=== PATIENT | male | born 1965 | race Caucasian/White ===

== ENCOUNTER 2017-01-23 17:09 | Inpatient (IN) ==
[2017-01-23 18:30] LABS: MANUAL DIFF NEEDED? NO
[2017-01-23 18:37] LABS: BASO% 0.2 % (0.0-0.8); EOS% 1.1 % (0.0-10.0); HEMATOCRIT 39.7 % (42.0-52.0); IMM GRAN# 0.03 X1000 (0.0-0.04); IMM GRAN% 0.3 % (0.0-0.5); LYMPH# 1.75 X1000 (1.2-3.4); LYMPH% 18.5 % (20.5-51.1); MCH 30.6 PG (27-31); MCHC 35.3 g/dL (33-37); MCV 86.9 FL (81-99); MONO# 0.95 X1000 (0.11-0.59); MPV 11.1 FL (7.4-10.4); NEUT% 69.9 % (42.2-75.2); PLT 171 X1000 (130-400); RBC 4.57 XMIL (4.7-6.1)
[2017-01-23 18:55] LABS: AGAP 17; ALBUMIN 3.8 g/dL (3.5-5.0); ALKALINE PHOSPHATASE 65 U/L (32-122); BUN 22 mg/dL (8-22); CALCIUM 8.9 mg/dL (8.8-10.2); CHLORIDE 94 mmol/L (98-107); COSMO 284; GOT 12 U/L (10-34); GPT 16 U/L (10-44); POTASSIUM 4.3 mmol/L (3.5-5.1); SODIUM 134 mmol/L (136-145); TCO2 23 mmol/L (25-35); TOTAL PROTEIN 7.1 g/dL (6.3-8.3); URIC ACID 5.9 mg/dL (3.4-7.0)
--- NOTE | 2017-01-23 19:40 | PROVIDER DOCUMENTATION ---
HPI-Musculoskeletal Pain/Inj - GENERAL Chief Complaint: Extremity Pain Stated Complaint: LEFT BIG TOE PAIN Time Seen by Provider: 01/23/17 19:32 Source: patient - HX OF PRESENT ILLNESS-MUSKULOSKELTAL Nature of Presenting Problem: 51 y/o M with history of DM (newly diagnosed 1 month ago) HTN, diabetic foot ulcers presents with left great toe pain and swelling x 3 days. Symptoms similar to this in the past with diabetic foot ulcers. He was recently hospitalized at [facility] for hyperglycemic hyperosmolar state and was also treated for cellulitis of left foot (4th and 5th toes) with IV antibiotics and discharged home with PO abx and wound care follow up. He was also started on insulin and educated on diabetic diet. Patient has appt on January [address] Ledezma (wound care). Patient has been performing wound care and took antibiotics but failed to keep foot elevated as instructed. He was checking BG BID but ran out of strips 2 weeks ago. He has not followed up with a PCP regarding the diabetes. He has PCP appt scheduled but not sure when (states his handles these things). Quality of Pain: reports: aching Severity in ED: moderate Onset/Duration: other (onset 1 month ago. Worsening x 3 days) Timing: still present Review of Systems - Adult - REVIEW OF SYSTEMS - ADULT Constitutional: reports: chills. denies: fever Eyes: reports: no symptoms reported Ears, Nose, Mouth & Throat: reports: no symptoms reported Cardiovascular: reports: no symptoms reported. denies: chest pain Respiratory: reports: no symptoms reported. denies: cough Gastrointestinal: reports: no symptoms reported. denies: abdominal pain, nausea , vomiting Genitourinary: reports: no symptoms reported. denies: dysuria, hematuria Musculoskeletal: reports: no symptoms reported. denies: bone pain, back pain Integumentary: reports: no symptoms reported Neurological: reports: no symptoms reported. denies: dizziness/vertigo, headache/migraines Psychiatric: reports: no symptoms reported Endocrine: reports: no symptoms reported Hematologic/Lymphatic: reports: no symptoms reported Allergic/Immunologic: reports: no symptoms reported All Other Systems: Reviewed and Negative Past History - Adult - PAST MEDICAL HISTORY-ADULT Review of Records: reports: Nursing Assessment Review, Medications Reviewed Major Childhood Illnesses: reports: denies history Cardiovascular: reports: HTN Respiratory: reports: denies history Gastrointestinal: reports: denies history Obstetrical/Gynecological: reports: denies history Genitourinary: reports: denies history Musculoskeletal: reports: denies history Neurological: reports: denies history Psychiatric: reports: other (drug abuse) Endocrine/Immune: reports: denies history Other Conditions: reports: denies history - PRIOR SURGERIES/PROCEDURES Surgical/Procedure History: reports: tonsillectomy, back/neck - IMMUNIZATION STATUS Childhood Immunizations: See Nurse Assessment Flu Vaccine: See Nurse Assessment - FAMILY HISTORY Family History: reviewed, not pertinent Physical Exam-Injury Related - Physical Exam-Injury Related Initial Vital Signs Reviewed: Yes General Appearance: appears well, alert, no apparent distress Eyes: PERRL/EOMI, pink conjunctivae Head, Ears, Nose, Mouth & Throat: normocephalic/atraumatic, moist mucous membranes Neck: non-tender, full range of motion, supple Respiratory: chest non-tender, lungs clear, normal breath sounds Cardiovascular: regular rate, rhythm Abdominal Exam: normal bowel sounds, non tender, soft Back Exam: normal inspection Extremity: normal range of motion, erythema, swelling, tenderness, other ( unable to palpate DP pulse due to swelling, however foot is warm and cap refill <2sec) Integumentary: warm/dry Neurologic: grossly normal, no motor/sensory deficits Psych/Mental Status: normal mood/affect, normal thought content, normal thought process, oriented x 3 Progress - PLAN OF CARE/RESULTS Progress/Plan/Lab Results: Laboratory Tests 01/23/17 01/23/17 01/23/17 18:15 18:15 20:13 WBC 9.47 RBC 4.57 L Hgb 14.0 Hct 39.7 L MCV 86.9 MCH 30.6 MCHC 35.3 RDW Std Deviation 13.8 Plt Count 171 MPV 11.1 H Immature Gran % (Auto) 0.3 Neut % (Auto) 69.9 Lymph % (Auto) 18.5 L Door % (Auto) 10.0 H Eos % (Auto) 1.1 Baso % (Auto) 0.2 Immature Gran # (Auto) 0.03 Neut # (Auto) 6.62 H Lymph # (Auto) 1.75 Door # (Auto) 0.95 H Eos # (Auto) 0.10 Baso # (Auto) 0.02 Sodium 134 L Potassium 4.3 Chloride 94 L Carbon Dioxide 23 L Anion Gap 17 BUN 22 Creatinine 1.2 Estimated GFR/1.73 m2 > 60 BUN/Creatinine Ratio 18 Glucose 322 H Calculated Osmolality 284 Uric Acid 5.9 Calcium 8.9 Total Bilirubin 0.50 AST 12 ALT 16 Alkaline Phosphatase 65 Total Protein 7.1 Albumin 3.8 Globulin 3.3 Albumin/Globulin Ratio 1.2 Plasma Lactate 1.1 Orders Category Date Time Status BLOOD CULTURE [BLDCUL] Stat Lab 01/23/17 20:13 Results CBC WITH ELECTRONIC DIFF [HEME] Stat Lab 01/23/17 18:15 Completed COMPREHENSIVE METABOLIC PANEL [CHEM] Stat Lab 01/23/17 18:15 Completed LACTATE, PLASMA [CHEM] Stat Lab 01/23/17 20:13 Completed URIC ACID [CHEM] Stat Lab 01/23/17 18:15 Completed 0.9% Sodium Chloride Inj [Ns] 1,000 ml Med 01/23/17 19:53 Active IV 999 mls/hr Piperacil/Tazobact 3.375 gm/Ns [Zosyn 3.375 gm/Ns] 50 Med 01/23/17 19:54 Discontinued ml IV NOW Vancomycin 1 gm/Ns 250 ml Med 01/23/17 20:49 Active IV NOW Vital Signs Temp Pulse Resp BP Pulse Ox 01/23/17 19:39 83 14 151/80 100 01/23/17 17:31 99.1 F 98 H 18 151/120 99 No Known Allergies Allergy (Verified 01/23/17 20:19) LISINOpril [Prinivil] 10 mg PO DAILY 12/22/16 Insulin Human NPH [Humulin N] 20 unit SUBQ QHS #2 vial 12/26/16 Sennosides/Docusate Sodium [Pericolace] 1 each PO BID #60 tablet 12/26/16 Laboratory 01/23/17 01/23/17 01/23/17 20:13 18:15 18:15 WBC 9.47 RBC 4.57 L Hgb 14.0 Hct 39.7 L MCV 86.9 MCH 30.6 MCHC 35.3 RDW Std Deviation 13.8 Plt Count 171 MPV 11.1 H Immature Gran % (Auto) 0.3 Neut % (Auto) 69.9 Lymph % (Auto) 18.5 L Door % (Auto) 10.0 H Eos % (Auto) 1.1 Baso % (Auto) 0.2 Immature Gran # (Auto) 0.03 Neut # (Auto) 6.62 H Lymph # (Auto) 1.75 Door # (Auto) 0.95 H Eos # (Auto) 0.10 Baso # (Auto) 0.02 Sodium 134 L Potassium 4.3 Chloride 94 L Carbon Dioxide 23 L Anion Gap 17 BUN 22 Creatinine 1.2 Estimated GFR/1.73 m2 > 60 BUN/Creatinine Ratio 18 Glucose 322 H Calculated Osmolality 284 Uric Acid 5.9 Calcium 8.9 Total Bilirubin 0.50 AST 12 ALT 16 Alkaline Phosphatase 65 Total Protein 7.1 Albumin 3.8 Globulin 3.3 Albumin/Globulin Ratio 1.2 Plasma Lactate 1.1 - CONSULTS/PCP/HOSPITALIST Notification #1 *Consult/PCP/Hospitalist*: Dr. Deshpande Time Discussed: 20:59 Consult Disposition: Admit Departure - Departure Time of Disposition Order: 20:59 DIAGNOSIS: Cellulitis of left foot, Diabetic foot ulcer, Uncontrolled diabetes mellitus Disposition: ADMITTED INPATIENT 09 Certified Medical Emergency: Emergent Condition: Stable Attestation - Physician/ DANG Attestation Patient care was provided by Advanced Practice Provider:: Yes Advanced Practice Provider:: [facility] Advanced Practice Provider documentation review:: The Mid-level provider documentation, treatment plan and medical decision making was reviewed by the physician who agrees with all treatment and medical decision making by the P.
[2017-01-23] MEDS ORDERED: NS 1,000 ML IV ONE (19:53)
[2017-01-23] MEDS ORDERED: ZOSYN 3.375 GM/NS 50 ML IV ONE (19:54)
[2017-01-23] MEDS ORDERED: VANCOMYCIN 1 GM/NS 250 ML IV ONE (20:49)
[2017-01-24] MEDS ORDERED: MORPHINE IV PRN (00:06)
[2017-01-24] MEDS ORDERED: ZOFRAN IV PRN (00:06)
[2017-01-24] MEDS: HUMULIN N SUBQ SCH ×2 (01:05→21:21)
--- NOTE | 2017-01-24 01:34 | HISTORY AND PHYSICAL ---
CHIEF COMPLAINT: Left toe pain and irritation. HISTORY OF PRESENT ILLNESS: This is a 51-year-old male with newly diagnosed diabetes and recently admitted for a wound infection. He was actually discharged on insulin and Keflex. Patient did better. Reportedly, he had resolution of his infection because as he had some concern over a blister over his foot which had completely resolved. He came back in for about a four-day history of worsening pain and drainage in his left toe, significantly uncomfortable with weeping and irritation. He has not seen a doctor even though he has been diagnosed with diabetes. It sounds like he also stopped checking his sugar because he ran out of strips. In any case, patient admitted for cellulitis of the left foot failing outpatient therapy. He had been trying to get on medication. Well, he had he had recurrent infections in his foot. PAST SURGICAL HISTORY: 1. He has had back surgery. 2. Obstructive sleep apnea but does not wear a CPAP. 3. Depression. SURGICAL HISTORY: Tonsillectomy, back surgery. SOCIAL HISTORY: He is a 30 year smoker. Occasional marijuana and uses IV opiates, usually Opana. He has not had any drugs since his last admission which was in December. That was about a month ago. FAMILY HISTORY: Father of pancreatic cancer, mother of heart failure. ALLERGIES: No known drug allergies. MEDICATIONS: He is supposed to be taking lisinopril 10, Humulin N 20 units at night, and Senokot docusate. REVIEW OF SYSTEMS: Otherwise negative times a 10 point review of systems. PHYSICAL EXAMINATION: VITAL SIGNS: Blood pressure 148/66, heart rate of 79, respiratory rate of 23, temp was 99.1, 96% on room air. GENERAL: A well-developed male in no acute distress. HEAD: Normocephalic, atraumatic. EYES: Pupils equal, round, reactive to light. Extraocular movements were intact. EAR/NOSE/THROAT: He had moist mucous membranes. NECK: Supple. CARDIOVASCULAR: Regular rate and rhythm. PULMONARY: Bilateral breath sounds. Clear to auscultation. GASTROINTESTINAL: Soft, nontender, nondistended. Bowel sounds are positive. EXTREMITIES: No clubbing or cyanosis. LYMPHATIC: He did have pitting edema in his left foot. SKIN: He had a blistering lesion over his right foot assisted with erythema of the toe and dorsum of his foot. There was no purulent drainage. He has a square, almost jun-shaped lesion, superficial ulceration with a deeper infection over his dorsum of his left foot between his 4th and 5th digits. LABORATORY DATA: No white count. Chemistries look okay. Blood sugar a little bit elevated. PROBLEM LIST: This is a 51-year-old male with diabetes presenting with recurrent cellulitis and diabetic foot ulcer and irritation. 1. Diabetic foot ulcer. We will continue vancomycin and Zosyn. He has got good pulses but I may go ahead and evaluate for blood flow just to make sure it is adequate although I think that is unlikely to be an issue, and we will follow. He may need home IV therapy which may be difficult considering his financial resources. 2. Diabetes. Continue strict control and follow reinforced education. 3. Hypertension. We will continue monitor, use blood pressure medications as tolerated.
[2017-01-24 06:41] LABS: AGAP 14; BUN 16 mg/dL (8-22); CALCIUM 8.7 mg/dL (8.8-10.2); CHLORIDE 97 mmol/L (98-107); COSMO 274; POTASSIUM 4.2 mmol/L (3.5-5.1); SODIUM 134 mmol/L (136-145); TCO2 23 mmol/L (25-35)
[2017-01-24] MEDS: HUMULIN R SUBQ SCH ×4 (07:57→21:25)
[2017-01-24] MEDS: MORPHINE IV PRN ×2 (08:05→15:29)
[2017-01-24] MEDS: PRINIVIL PO SCH (09:01)
[2017-01-24] MEDS: PERICOLACE PO SCH ×2 (09:01→21:21)
[2017-01-24] MEDS: GLUCOPHAGE PO SCH ×2 (09:01→21:21)
--- NOTE | 2017-01-24 12:57 | PROGRESS NOTE ---
DATE: 01/24/2017 SUBJECTIVE: Patient reports mild pain in the left toe. Reports fever at home, but here he is not febrile anymore. OBJECTIVE: Vital Signs: Temperature 98.3 degrees, heart rate 71, respiratory rate 18, blood pressure 138/72, O2 saturation 99% on room air. General examination: This is a 51-year-old, male, lying in bed in no acute distress. HEENT: Head is normocephalic, atraumatic. Anicteric sclerae and pale conjunctivae. Mucous membranes moist. Neck: Supple. No JVD noted. No carotid bruits. No lymphadenopathy. No thyromegaly. Cardiovascular exam: S1, S2 heard. No murmurs, gallops, or rubs. Regular rate and rhythm. Respiratory exam: Clear bilaterally to auscultation. No work of breathing or using accessory muscles. Abdomen: Soft, nontender to palpation. Bowel sounds present. No organomegaly. Extremities: No clubbing, cyanosis, or edema. There is a blistering lesion over the left foot with erythema of the toe and dorsum of the toe. There is no purulent drainage noted. There is also superficial ulceration with a deeper infection over the dorsum of the left foot between the fourth and fifth digits. Neurological exam: Patient alert and oriented x3. Able to move 4 extremities. Cranial nerves 2-12 grossly normal. LABORATORY DATA: Not available today. ASSESSMENT AND PLAN: 1. Diabetic foot ulcer. This is on vancomycin and Zosyn. White cell count is normal from yesterday. We have consulted Dr. Draper from general surgery and Dr. Ledezma from infectious disease to help us in the management of this patient. At this point, we will continue with the same antibiotic treatment. 2. Diabetes mellitus type 2. Hemoglobin A1c is still pending. We will continue with sliding scale insulin. 3. Hypertension. Blood pressure is well controlled here. We will continue with the same management.
[2017-01-24] MEDS ORDERED: VANCOMYCIN IV PER PHARMACY MISC SCH (15:00)
--- NOTE | 2017-01-24 15:24 | Diag Imaging Result Document ---
PROCEDURE NAME: FOOT COMPLETE LEFT - 01/24/2017 LEFT FOOT, 3 VIEWS: FINDINGS: There is degenerative change in the 1st metatarsophalangeal joint and there is some hyperostosis around the base of the 5th metatarsal. There is dorsal spurring over the calcaneus. No evidence of acute fracture or dislocation is present. There is an apparent skin ulcer on the dorsal side of the forefoot. No evidence of lysis or periosteal reaction is present. Compared to 12/22/2016, there has been no apparent change. IMPRESSION: No evidence of acute bony disease.
--- NOTE | 2017-01-24 15:28 | PROGRESS NOTE ---
DATE: 01/24/2017 PRESENT ILLNESS: The patient is admitted. He has a very severe infection of his left foot especially in the left great toe. MEDICATIONS: The patient currently is on no antibiotics. PHYSICAL EXAMINATION: Vital Signs: Temperature is 98.3 degrees, pulse 71, respirations 18, blood pressure 138/72. Generally: This is a somewhat ill-appearing, middle-aged male. He is in no acute distress. Ear, nose, and throat: The patient has very poor oral hygiene with some necrotic teeth. He is missing many teeth. Lungs: Clear to auscultation. Cardiovascular: Regular heart rate. Abdomen: Soft and nontender. Extremities: The patient's left foot is erythematous and swollen. The left great toe is fluctuant. After cleaning the area with alcohol, I took a 21- gauge needle and stuck the fluctuant area, going approximately 0.5-1 cm deep. Purulent foul- smelling fluid came out, in fact some of it, when I squeezed his toe, squirted out. LAB AND X-RAY: The patient's CBC shows a white count of 9470, hemoglobin 14, and platelet count 171,000. Creatinine is 1.0. GFR is greater than 60. Liver function studies are normal. There is no radiographic study. Blood cultures have been drawn. ASSESSMENT AND PLAN: The patient has a severe left foot infection including an abscess involving the left great toe. He may well have an underlying osteomyelitis as well. I have sent the purulent fluid to the lab for culture. I have restarted the patient on vancomycin and Zosyn, and have ordered an x-ray of the left foot. Dr. Montague is going to be seeing the patient today. The patient's main comorbidity is that he is a diabetic and has not in the past controlled his diabetes very well.
[2017-01-24] MEDS: ZOSYN 3.375 GM/NS 50 ML IV SCH ×2 (15:58→21:22)
[2017-01-24] MEDS: VANCOMYCIN 2,000 MG in NS 500 ML IV SCH (16:54)
[2017-01-24] MEDS: NORCO-7.5 PO PRN (19:44)
[2017-01-25] MEDS: NORCO-7.5 PO PRN ×3 (01:45→20:15)
[2017-01-25] MEDS: ZOSYN 3.375 GM/NS 50 ML IV SCH ×4 (03:36→21:51)
[2017-01-25] MEDS: MORPHINE IV PRN (03:36)
[2017-01-25] MEDS: VANCOMYCIN 2,000 MG in NS 500 ML IV SCH ×2 (04:32→18:08)
[2017-01-25] MEDS: HUMULIN R SUBQ SCH ×4 (06:01→21:48)
[2017-01-25 07:12] LABS: HEMOGLOBIN 12.8 g/dL (14.0-18.0); MCH 30.2 PG (27-31); MCHC 34.6 g/dL (33-37); MCV 87.3 FL (81-99); MPV 11.2 FL (7.4-10.4); RBC 4.24 XMIL (4.7-6.1)
[2017-01-25 07:34] LABS: HEMOGLOBIN A1C 8.5 % (4.8-6.0)
[2017-01-25 07:40] LABS: AGAP 13; BUN 15 mg/dL (8-22); CALCIUM 8.3 mg/dL (8.8-10.2); CHLORIDE 100 mmol/L (98-107); COSMO 273; SODIUM 135 mmol/L (136-145); TCO2 22 mmol/L (25-35)
[2017-01-25] MEDS: PERICOLACE PO SCH ×2 (09:13→21:51)
[2017-01-25] MEDS: GLUCOPHAGE PO SCH ×2 (09:14→21:51)
[2017-01-25] MEDS: PRINIVIL PO SCH (09:14)
--- NOTE | 2017-01-25 09:42 | PROGRESS NOTE ---
DATE: 01/25/2017 PRESENT ILLNESS: The patient has a left a diabetic foot infection. There is an abscess on the foot. There may be an underlying osteomyelitis. MEDICATIONS: Currently, the patient is receiving vancomycin and Zosyn. PHYSICAL EXAMINATION: Vital Signs: Temperature is 97.7 degrees. Pulse 63. Respirations 18. Blood pressure 122/72. General: This is an obese, middle-aged male. ENT: Patient is missing many of his teeth and has diffuse caries and some necrotic teeth in place. Lungs: Clear to auscultation. Cardiovascular: Regular heart rate. Abdomen: Soft and nontender. Extremities: The left foot has a large ulcer on top of the foot with an eschar covering it. The left great toe has an abscess which was partially drained yesterday. LAB AND X-RAY STUDIES: X-ray of the foot showed no evidence of osteomyelitis. Blood cultures are sterile. Gram stain of the abscess fluid obtained yesterday showed white cells but no bacteria. The culture is pending. The patient's CBC today shows a white count of 8290, hemoglobin 12.8 and platelet count 159,000, creatinine is 1.0. The GFR is greater than 60. ASSESSMENT AND PLAN: For right now, I am going to keep going with the current antibiotics namely vancomycin and Zosyn and I have ordered a triple phase bone scan of the left foot to check for osteomyelitis. COMORBIDITY: He has diabetes mellitus and unfortunately, he has not been very compliant in the past but he tells me now that he is going to control his sugar well and stay on a diet and lose weight.
--- NOTE | 2017-01-25 14:08 | OPERATIVE NOTE ---
PROCEDURE DATE: 01/25/2017 PREOPERATIVE DIAGNOSIS: Infected left diabetic great toe and foot. POSTOPERATIVE DIAGNOSIS: Infected left diabetic great toe and foot. PROCEDURE PERFORMED: Debridement of skin and subcutaneous tissue, left foot wounds. SURGEON: Pamela Draper MD ANESTHESIA: None. ESTIMATED BLOOD LOSS: 10 mL. DRAINS: None. INDICATIONS: Mr. Magdy Muñiz is a 51-year-old, poorly controlled diabetic who has a left foot diabetic infection. He has an open wound involving the lateral aspect of his left foot and he also has a chronic open wound involving the plantar aspect of his left great toe. He has an infected blister involving the left great toe. There is an eschar involving the wound, lateral left foot. DESCRIPTION OF PROCEDURE: At the bedside, I was able to debride not only his left great toe but also the lateral aspect of his left foot comfortably. I used a 15 blade scalpel to debride away the blisters. The ulcer underlying the blister communicated with the wound on the bottom of the left great toe and I connected those 2 tracks by opening the soft tissue and callus using a 15 blade scalpel. I debrided the eschar off the lateral aspect of his left foot. I clean the wounds with hydrogen peroxide and then redressed the foot. He tolerated the procedure well.
--- NOTE | 2017-01-25 14:38 | PROGRESS NOTE ---
DATE: 01/25/2017 SUBJECTIVE: The patient reports feeling fine. No pain in the left toe. No fever or chills noted OBJECTIVE: Vital Signs: Temperature 97.7 degrees, heart rate 63, respiratory rate 18, blood pressure 122/72, O2 saturation 98% on room air. General Examination: This is a 51-year-old male, lying in bed in no acute distress. HEENT: Head is normocephalic, atraumatic. Anicteric sclerae and pale conjunctivae. Mucous membranes moist. Neck: Supple. No JVD noted. No carotid bruits. No lymphadenopathy. No thyromegaly. Cardiovascular: S1 and S2 heard. No murmurs, gallops, or rubs. Regular rate and rhythm. Respiratory: Clear bilaterally to auscultation. No work of breathing or using accessory muscles. Abdomen: Soft, nontender to palpation. Bowel sounds present. No organomegaly. Extremities: No clubbing, cyanosis, or edema. Blistering lesion over the left foot with erythema of the dorsum of the toe. No purulent drainage noted. Also, superficial ulceration with a deeper infection over the dorsum of the left foot between the 4th and 5th digits. Neurological: Patient alert and oriented x3. Moves 4 extremities. LABORATORY DATA: BMP and CBC unremarkable except mild anemia at 2.8. ASSESSMENT AND PLAN: 1. Diabetic foot ulcer. Patient was admitted to the hospital for this ulcer that has been going on for a few days, according to the patient. General Surgery has been consulted, but there is no note in the chart yet. Dr. Ledezma from Infectious Disease has been consulted and he preferred to continue with vancomycin and Zosyn. Because of suspicion for osteomyelitis, a bone scan has been ordered. We will follow those results. 2. Diabetes mellitus, type 2. Hemoglobin A1c is elevated at 8.5. At this point, we will continue with the same management with the sliding scale insulin. 3. Hypertension. Blood pressure is well controlled. We will continue with the same management.
--- NOTE | 2017-01-25 14:38 | CONSULTATION ---
DATE OF CONSULTATION: 01/25/2017 HISTORY OF PRESENT ILLNESS: Mr. Muñiz is a 51-year-old white male diabetic who is noncompliant and I recently evaluated him while he was hospitalized for an infection of his foot. He presented again to our emergency department with a left diabetic foot infection. He has a chronic ulcer involving the plantar aspect of his left great toe. He also has an open wound involving the lateral aspect of the top of his left foot. We were asked to evaluate him again because of his soft tissue infection, left foot. PAST HISTORY: Back surgery, obstructive sleep apnea, depression, tonsillectomy. SOCIAL HISTORY: He is a smoker. He has used drugs in the past and admits to this. He was last admitted in the hospital in December. FAMILY HISTORY: His father of pancreatic cancer. Mother of heart failure. ALLERGIES: No known drug allergies. MEDICATIONS: He is noncompliant with his medicine but he is supposed to be taking lisinopril, insulin. REVIEW OF SYSTEMS: A 14-point review of systems was performed. He is disabled. He stays at home. His works at [employer]. PHYSICAL EXAM: General: On exam, Mr. Muñiz is awake, pleasant in no acute distress. HEENT exam: No jaundice. No oral lesions. No cervical or supraclavicular lymphadenopathy. Heart: Has a regular rate. Lungs: Clear to auscultation and percussion bilaterally. Abdomen: Soft without tenderness. RECTAL: Exam was not performed. Extremities: He does have palpable peripheral pulses throughout including the dorsalis pedis pulse left foot. He has an open wound involving the top lateral aspect the left foot. He also has a blister with infection involving his left great toe and a chronic open wound involving the plantar aspect of his left great toe. There is swelling of the left great toe and redness involving the toe and foot. His right foot is without evidence of infection. Neurological: He has no focal deficits. IMPRESSION: Left diabetic foot infection in a patient that is noncompliant with his medications and his healthcare. PLAN: At the bedside I will debride the infected blister and wound on the plantar aspect of his left great toe. Also debride the chronic wound involving the top lateral aspect of the left foot. He is receiving IV antibiotics and will need daily wound care.
--- NOTE | 2017-01-25 15:01 | Diag Imaging Result Document ---
PROCEDURE NAME: 3 PHASE BONE SCAN - 01/25/2017 THREE-PHASE BONE SCAN WITH CONED DOWN IMAGES OVER THE FEET. TECHNIQUE AND FINDINGS: 27.8 mCi of technetium MDP administered. Immediate dynamic images show increased uptake within the left foot compared to the right. This persists on the 5, 10, and 15 minute postinjection images. This is most centralized in the midfoot and great toe. Increased activity in the left foot remains on the delayed images. IMPRESSION: Findings suspicious for osteomyelitis of the great toe.
--- NOTE | 2017-01-25 20:23 | VASCULAR LAB ---
DATE: 01/25/2017 STUDY: Bilateral lower extremity segmental pressure and waveform examination. REQUESTING PHYSICIAN: Dr. Huffman. PATIENT PORTAL REPRESENTATIVE: Amadeo. INDICATION: Left-sided ulcers on the first and fifth digits of the foot. PRESSURES: Right brachial 128, left 119. High thigh on the right 163, left 171. Low thigh on the right 178, left 159. Calf pressure on the right 177, left 155. DP on the right 139, left 130. PT on the right 147, left 145. Toe pressure on the right 130, left 127. JARRETT on the right is 1.15, left 1.13. TBI on the right is 1.02, left is 099. IMPRESSION: Waveforms appear normal throughout. ABIs normal as are TBI. SUMMARY: Overall normal examination of bilateral lower extremities.
[2017-01-25] MEDS: HUMULIN N SUBQ SCH (21:51)
[2017-01-26] MEDS: ZOSYN 3.375 GM/NS 50 ML IV SCH ×3 (02:38→14:18)
[2017-01-26] MEDS: NORCO-7.5 PO PRN ×4 (02:38→21:34)
[2017-01-26] MEDS: VANCOMYCIN 2,000 MG in NS 500 ML IV SCH ×2 (03:16→17:24)
[2017-01-26] MEDS: HUMULIN R SUBQ SCH ×4 (06:15→21:35)
[2017-01-26 06:58] LABS: AGAP 10; BUN 13 mg/dL (8-22); CALCIUM 9.3 mg/dL (8.8-10.2); CHLORIDE 99 mmol/L (98-107); COSMO 272; POTASSIUM 4.6 mmol/L (3.5-5.1); SODIUM 135 mmol/L (136-145); TCO2 26 mmol/L (25-35)
[2017-01-26] MEDS: PERICOLACE PO SCH ×2 (08:38→21:35)
[2017-01-26] MEDS: GLUCOPHAGE PO SCH ×2 (08:38→21:35)
[2017-01-26] MEDS: PRINIVIL PO SCH (08:38)
--- NOTE | 2017-01-26 13:15 | PROGRESS NOTE ---
DATE: 01/26/2017 SUBJECTIVE: Feels better, no pain in his foot. OBJECTIVE: No fevers. No tachycardia. Blood pressure 132/70. Oxygen saturation 100% on room air.General: He is alert in no acute distress. Integument: Warm, dry. His foot has clean ulcers on the lateral cephalad aspect and the plantar medial aspect of the left foot. ASSESSMENT: This is a 51-year-old male status post bedside debridement of his chronic diabetic foot wound. These are clean now. The cellulitis of his foot seems to be improving. Will continue to monitor these and provide local wound care. The patient is doing most of this but the nurses are helping. He is on broad-spectrum antibiotics with cultures pending. I will continue to monitor his wounds for need for further debridement but do not need this at this point.
--- NOTE | 2017-01-26 15:54 | PROGRESS NOTE ---
DATE: 01/26/2017 SUBJECTIVE: This patient states that he is feeling much better. He is not complaining about pain. No nausea, no vomiting, no diarrhea, no constipation. No fever. No chills. OBJECTIVE: Vital Signs: Temperature 98.5 degrees, pulse 68, respiratory rate 18, blood pressure 132/70, O2 saturation 100% on room air. HEENT: Head normocephalic. No trauma. PERRLA. Neck: Supple. No JVD. No masses. Central trachea. Chest: Clear to auscultation. No wheezing. No rales. Abdomen: Soft, nontender, nondistended. No hepatosplenomegaly. Cardiovascular: RRR. No murmurs. Extremities: Left foot is wrapped. I do not see any sign of blood. No pain. No edema on the left lower extremity. Neurological: Patient is alert and oriented x3. He moves all 4 extremities. LABORATORY: Sodium 135, potassium 4.6, chloride 99, bicarbonate 26, BUN 13, creatinine 1.1, glucose 126, calcium 9.3. ASSESSMENT AND PLAN: 1. Infected left great toe wound and wound involving the lateral aspect of his left foot, status post debridement of skin and subcutaneous tissue that was done yesterday at bedside. This patient is feeling better. We will continue for now with the antibiotics and pain medications. The Infectious Disease department is on board and for now they are keeping the same antibiotics, vancomycin and Zosyn. We asked for a 3-phase bone scan and the findings are suspicious for osteomyelitis of the great toe. 2. Type 2 diabetes. Hemoglobin A1c is elevated at 8.5. We will continue with the same management. The blood sugar is controlled. 3. Hypertension. Blood pressure is well controlled. Continue with the same management, as well. In summary, this patient has a diabetic foot ulcer at the level of the lateral aspect of the left foot and great toe, status post debridement. Imaging studies showed the possibility of osteomyelitis of the left great toe.
[2017-01-26] MEDS: ZOSYN 3.375 GM in NS 100 ML IV SCH (21:34)
[2017-01-26] MEDS: HUMULIN N SUBQ SCH (21:35)
[2017-01-27] MEDS: ZOSYN 3.375 GM in NS 100 ML IV SCH ×4 (03:31→21:35)
[2017-01-27] MEDS: VANCOMYCIN 2,000 MG in NS 500 ML IV SCH ×2 (04:45→16:12)
[2017-01-27] MEDS: NORCO-7.5 PO PRN ×4 (04:45→22:53)
[2017-01-27 06:30] LABS: MANUAL DIFF NEEDED? NO
[2017-01-27 06:41] LABS: BASO% 0.7 % (0.0-0.8); EOS# 0.34 X1000 (0.0-0.7); EOS% 3.3 % (0.0-10.0); HEMATOCRIT 38.6 % (42.0-52.0); HEMOGLOBIN 13.5 g/dL (14.0-18.0); IMM GRAN# 0.03 X1000 (0.0-0.04); IMM GRAN% 0.3 % (0.0-0.5); LYMPH% 38.2 % (20.5-51.1); MCH 30.1 PG (27-31); MCV 86.2 FL (81-99); MONO# 0.97 X1000 (0.11-0.59); MONO% 9.5 % (1.7-9.3); MPV 11.2 FL (7.4-10.4); PLT 227 X1000 (130-400); RBC 4.48 XMIL (4.7-6.1)
[2017-01-27] MEDS: HUMULIN R SUBQ SCH ×4 (06:43→21:20)
[2017-01-27 06:49] LABS: AGAP 12; ALBUMIN 4.2 g/dL (3.5-5.0); ALKALINE PHOSPHATASE 64 U/L (32-122); BUN 14 mg/dL (8-22); CALCIUM 9.3 mg/dL (8.8-10.2); CHLORIDE 99 mmol/L (98-107); COSMO 272; GOT 15 U/L (10-34); GPT 17 U/L (10-44); POTASSIUM 4.4 mmol/L (3.5-5.1); SODIUM 135 mmol/L (136-145); TCO2 24 mmol/L (25-35); TOTAL BILIRUBIN 0.43 mg/dL (0.20-1.00); TOTAL PROTEIN 7.5 g/dL (6.3-8.3)
[2017-01-27] MEDS: PERICOLACE PO SCH ×2 (10:27→21:36)
[2017-01-27] MEDS: PRINIVIL PO SCH (10:27)
[2017-01-27] MEDS: GLUCOPHAGE PO SCH ×2 (10:28→21:36)
--- NOTE | 2017-01-27 11:46 | PROGRESS NOTE ---
DATE: 01/27/2017 SUBJECTIVE: Feels well. No pain in his foot. OBJECTIVE: General: No fevers. No tachycardia. Extremities: Dressing is clean, dry, intact. There is no cellulitis in his toes or extending up the foot. LABS: White count normal at 10. Blood glucose 126. Creatinine is 1.2. ASSESSMENT: This is a 51-year-old male status post debridement of diabetic foot wounds. Dressing is clean and changes are going well. He is on antibiotics. Will continue to follow but clinically he is much improved. No plans for further surgical intervention.
--- NOTE | 2017-01-27 16:01 | PROGRESS NOTE ---
DATE: 01/27/2017 SUBJECTIVE: This patient states that he is feeling better. He is not complaining about pain. No nausea, no vomiting, no diarrhea, no constipation, no fever, no chills. OBJECTIVE: Vital Signs: Temperature 98.9 degrees, pulse 54, respiratory rate 20, blood pressure 127/70, O2 saturation 100% on room air. HEENT: Head normocephalic. No trauma. PERRLA. Neck: Supple. No JVD. No masses. Central trachea. Chest: Clear to auscultation. No wheezing. No rales. Cardiovascular: Regular rhythm and rate. No murmurs. No gallops. No rubs. Abdomen: Soft, nontender, nondistended. No hepatosplenomegaly. Extremities: No edema. The left foot is wrapped. I do not see any signs of bleed. No pain. No edema on the left lower extremity. Neurological: The patient is alert and oriented x3. He moves all 4 extremities. LABORATORY: WBC 10.2, hemoglobin 13.5, hematocrit 38.6, platelets 227,000. Sodium 135, potassium 4.4, chloride 99, bicarbonate 24, BUN 14, creatinine 1.2, glucose 126, calcium 9.3. ASSESSMENT AND PLAN: 1. Infected left great toe wound and wound involving the lateral aspect of his left foot, status post debridement of skin and subcutaneous tissue that was done yesterday at bedside. This patient is feeling better. We will continue with the same antibiotics for now. Infectious Disease Department is following this patient. We asked for a 3-phase bone scan that showed suspicious osteomyelitis of the great toe. 2. Type 2 diabetes. Hemoglobin A1c is elevated at 8.5, the blood sugar inhouse is stable. I will continue with the same treatment. 3. Hypertension the blood pressure is well controlled. Continue with the same management as well.
[2017-01-27] MEDS: HUMULIN N SUBQ SCH (21:36)
[2017-01-28] MEDS: ZOSYN 3.375 GM in NS 100 ML IV SCH ×2 (02:48→09:15)
[2017-01-28] MEDS: VANCOMYCIN 2,000 MG in NS 500 ML IV SCH (03:32)
[2017-01-28] MEDS: NORCO-7.5 PO PRN ×3 (05:12→19:00)
[2017-01-28] MEDS: HUMULIN R SUBQ SCH ×4 (06:03→21:11)
[2017-01-28 07:03] LABS: MANUAL DIFF NEEDED? NO
[2017-01-28 07:23] LABS: BASO% 0.3 % (0.0-0.8); EOS# 0.28 X1000 (0.0-0.7); EOS% 3.1 % (0.0-10.0); HEMATOCRIT 38.8 % (42.0-52.0); HEMOGLOBIN 13.6 g/dL (14.0-18.0); LYMPH# 3.05 X1000 (1.2-3.4); LYMPH% 33.8 % (20.5-51.1); MCH 30.3 PG (27-31); MCHC 35.1 g/dL (33-37); MCV 86.4 FL (81-99); MONO# 0.76 X1000 (0.11-0.59); MONO% 8.4 % (1.7-9.3); MPV 10.9 FL (7.4-10.4); NEUT% 54.4 % (42.2-75.2); PLT 235 X1000 (130-400); RBC 4.49 XMIL (4.7-6.1)
[2017-01-28 07:53] LABS: AGAP 13; BUN 15 mg/dL (8-22); CALCIUM 9.5 mg/dL (8.8-10.2); CHLORIDE 102 mmol/L (98-107); COSMO 281; POTASSIUM 4.1 mmol/L (3.5-5.1); SODIUM 140 mmol/L (136-145); TCO2 25 mmol/L (25-35)
[2017-01-28] MEDS: PRINIVIL PO SCH (09:15)
[2017-01-28] MEDS: PERICOLACE PO SCH ×2 (09:15→21:10)
[2017-01-28] MEDS: GLUCOPHAGE PO SCH ×2 (09:15→21:10)
[2017-01-28] MEDS ORDERED: ZOSYN 3.375 GM/NS 50 ML IV SCH (15:00)
[2017-01-28] MEDS: KEFZOL 2 GM/D5W 50 ML IV SCH (16:58)
[2017-01-28 17:37] LABS: INR 1.08
--- NOTE | 2017-01-28 18:22 | PROGRESS NOTE ---
DATE: 01/28/2017 SUBJECTIVE: This patient states that he is feeling better. He is not complaining about pain. No nausea, no vomiting, no diarrhea, no constipation. No fever. No chills. OBJECTIVE: Vital Signs: Temperature 97.7 degrees, pulse 61, respiratory rate 16, blood pressure 126/65, O2 saturation 99 on room air. HEENT: Head normocephalic. No trauma. Pupils equal, round, and reactive to light and accommodation. Neck: Supple. No jugular venous distention. No masses. Central trachea. Chest: Clear to auscultation. No wheezing. No rales. Abdomen: Soft, nontender, nondistended. No hepatosplenomegaly. Extremities: No edema. The left foot is wrapped. I do not see any sign of bleed. No pain. No edema on the other extremity. Neurological Examination: The patient is alert and oriented x3. No focal neurological deficits. LABORATORY: WBC 9, hemoglobin 13.6, hematocrit 38.8, platelets 235,000. Sodium 140, potassium 4.1, chloride 102, bicarbonate 25, BUN 15, creatinine 1.1. Glucose 116, calcium 9.5. ASSESSMENT AND PLAN: 1. Infected left great toe wound and wound involving the lateral aspect of the left foot. Basically this is a diabetic foot that is status post debridement of skin and subcutaneous tissues that was done 2 days ago at bedside. This patient is feeling better. We will continue with the same antibiotics for now. Infectious Disease Department and Surgery are following this patient. We had a 3-phase bone scan that showed suspicious for osteomyelitis at the great toe. 2. Type 2 diabetes. The hemoglobin A1c is elevated at 8.5. Blood sugar is stable. I will continue with the same management. 3. Hypertension. The blood pressure is well controlled. Continue with the same management.
--- NOTE | 2017-01-28 19:03 | PROGRESS NOTE ---
DATE: 01/28/2017 PRESENT ILLNESS: The patient has an oxacillin sensitive Staph aureus, left foot osteomyelitis. MEDICATIONS: Currently is receiving vancomycin and Zosyn. PHYSICAL EXAMINATION: Vital Signs: Temperature is 97.7 degrees, pulse 61, respirations 16, blood pressure 126/65. General: This is an obese, but otherwise healthy-appearing middle-aged male who is in no acute distress. Lungs: Clear to auscultation. Cardiovascular: Regular heart rate. Abdomen: Soft and nontender. Extremities: Removed the dressing from the patient's left foot. There was much less swelling and erythema than when I had seen the foot before. The open wounds look like they were beginning to granulate. LAB AND X-RAY: The patient's bone scan shows that there is probable osteomyelitis in the left great toe. The patient's CBC today shows a white count of 9030, hemoglobin 13.6, and platelet count 235,000. Creatinine is 1.1. The GFR is greater than 60. The cultures from the patient's left great toe came back. It grew oxacillin-sensitive Staph aureus. Blood cultures were negative. ASSESSMENT AND PLAN: The patient has an oxacillin sensitive Staph aureus left foot osteomyelitis. My plan is to treat him with Ancef 2 g IV every 8 hours for a total of 6 weeks. I have requested that a PICC be placed. I put a consult in for [facility] to see the patient and provide his home IV antibiotic services. COMORBIDITIES: The patient's comorbidities includes diabetes mellitus, and unfortunately the patient in the past has not kept his diabetes under good control, but hopefully this will change this time. My plan is the patient to see him at 3 weeks and then again at 6 weeks. After 6 week visit; hopefully, we will be able to stop his antibiotics and take out his PICC. I discussed with the patient the surgical options that Dr. Montague had discussed with him and the patient said for now he would like to try antibiotics and not have amputation of his toes.
--- NOTE | 2017-01-28 19:34 | PROGRESS NOTE ---
DATE: 01/28/2017 SUBJECTIVE: Mr. Magdy Muñiz has been hospitalized with a diabetic foot infection. I debrided his left great toe locally at the bedside and he is undergoing daily dressing changes and IV antibiotics and clinically he is improving. His white blood cell counts normal. His hematocrit is 39%. He is afebrile. He is eating well. He is on IV Zosyn and vancomycin for his diabetic foot infection.
[2017-01-28] MEDS: HUMULIN N SUBQ SCH (21:12)
[2017-01-29] MEDS: NORCO-7.5 PO PRN ×3 (01:21→12:59)
[2017-01-29] MEDS: KEFZOL 2 GM/D5W 50 ML IV SCH ×2 (01:22→09:19)
[2017-01-29] MEDS: HUMULIN R SUBQ SCH ×2 (06:47→10:36)
[2017-01-29 07:07] LABS: AGAP 13; BUN 19 mg/dL (8-22); CALCIUM 9.2 mg/dL (8.8-10.2); CHLORIDE 101 mmol/L (98-107); COSMO 278; POTASSIUM 3.9 mmol/L (3.5-5.1); SODIUM 137 mmol/L (136-145); TCO2 23 mmol/L (25-35)
[2017-01-29 07:28] VITALS: BP 151/87
[2017-01-29] MEDS ORDERED: NS 250 ML ONE (08:06)
--- NOTE | 2017-01-29 09:09 | PROGRESS NOTE ---
DATE: 01/29/2017 HISTORY OF PRESENT ILLNESS: Mr. Magdy Muñiz continues to be treated for diabetic foot infection, mostly involving his left great toe. I have debrided his left great toe and an open wound on the top of his lateral left foot at the bedside. There is no un drained purulence. He continues on IV antibiotics and he continues to have a swollen red left great toe. I cleaned the wound today and re-dressed it. OBJECTIVE: His heart rate 59, blood pressure 151/87, O2 saturation is 100%. He is afebrile. He is on vancomycin and Zosyn. His white blood cell count is normal. Hematocrit is 39%. His electrolytes are within normal limits. BUN is 19, creatinine 1.1. His glucose is 131; it has been fairly well controlled during his hospitalization. A bone scan performed on 01/25/2017 suggests findings suspicious for osteomyelitis of the left great toe. A plain film on 01/24/2017 showed no evidence of acute bony disease involving the left foot. PLAN: Dr. Ledezma, our infectious disease physician, has seen the patient. He is trying to arrange long-term home and IV antibiotics for further treatment of his left great toe infection and possible osteomyelitis. There does not appear to be any joint instability on exam of this left great toe at this time.
[2017-01-29] MEDS: GLUCOPHAGE PO SCH (09:18)
[2017-01-29] MEDS: PRINIVIL PO SCH (09:18)
[2017-01-29] MEDS: PERICOLACE PO SCH (09:18)
[2017-01-29] MEDS ORDERED: PNEUMOVAX 23 IM ONE (14:45)
--- NOTE | 2017-01-29 18:42 | DISCHARGE SUMMARY ---
ADMISSION DATE: 01/24/2017 DISCHARGE DATE: 01/29/2017 CONSULTATIONS: Jakob Draper M.D., General Surgery. PERTINENT PROCEDURES: 1. Debridement of skin and subcutaneous tissue of left foot wound performed by Dr. Draper. 2. Bone scan. Findings are suspicious for osteomyelitis of the great toe left. DISCHARGE DIAGNOSES: 1. Infected left great toe wound and wound involving the lateral aspect of the left foot status post debridement of skin and subcutaneous tissues which was done at the bedside by Dr. Draper. Dr. Ryland Ledezma is on board. Patient will go home with [facility] for IV antibiotics. 2. Type 2 diabetes. Hemoglobin A1c was 8.5. Continue with home medications. 3. Hypertension. Continue with home blood pressure medicines. HOSPITAL COURSE: Briefly, Mr. Muñiz is a 51-year-old male newly diagnosed with diabetes and recently admitted for a wound infection. He was discharged on insulin and Keflex. The patient did better. Reportedly he had resolution of his infection but he did have some concern over a blister on his foot which had completely resolved. He came back in with a 4-day history of worsening pain and drainage over his left great toe. It was weeping and irritated. The patient has not been to a doctor yet even though he was diagnosed with diabetes. He ran out of strips so he quit checking his sugars. The patient was admitted for cellulitis of the left foot failing outpatient therapy. He was started on IV vancomycin as well as Zosyn. Reinforced diabetic education. The patient did undergo some arterial studies and that was overall a normal examination of the bilateral lower extremities. He did have a bone scan that was suspicious for osteomyelitis of the great toe. Dr. Draper was consulted for surgery. Patient did undergo a debridement of skin and subcutaneous tissue on the left foot wound. Dr. Ryland Ledezma was consulted. The patient did have oxacillin-sensitive Staphylococcus aureus to the left foot osteomyelitis. His plan is to see the patient in 3 weeks and then again in 6. At the 6 week visit he has to be able to stop his antibiotics and take out his PICC line. The patient will be going home on vancomycin and Zosyn. [facility] has been consulted. VITAL SIGNS AT TIME OF DISCHARGE: Temperature 98.7 degrees, heart rate 59, respirations 18, blood pressure 151/87, O2 is 100% on room air. DISCHARGE DIET: Diabetic. DISCHARGE MEDICATIONS: 1. Prinivil 10 mg p.o. daily. 2. Humulin N 20 units subcutaneously at bedtime. 3. Nathaly-Colace 1 each p.o. b.i.d. 4. Huslia 7.5/325, 1 each p.o. q.6 hours p.r.n. 5. Glucophage 850 mg p.o. b.i.d. 6. Vancomycin and Zosyn as per Dr. Ledezma and [facility]. FOLLOWUP: 1. Patient is being discharged home with [facility] for IV antibiotics. 2. He will follow up with Dr. Ryland Ledezma in 3 weeks as well as again in 6 weeks when they have to stop the antibiotics and take out his PICC line. 3. He will need to follow up with Dr. Draper in 1 week. The nurse will call the patient for a follow-up appointment and time. 4. Patient will also need to find a primary care physician to follow up with especially regarding his diabetes. He has been given diabetes care as well as re-educated on his diabetes and diabetic diet. 5. Patient can return to the ED for any worsening of symptoms. DISCHARGE TIME: 30 minutes. Dictated by BRADY Fairbanks for Gavino Sebastian MD
== END 2017-01-29 15:40 | disposition home health service (06) | DRG 982 ==
LOC: ED 17:09 → EDIPHOLD 23:59 → 4N 01-24 11:15
PROVIDERS: ATTEND Internal Medicine
PROC: 0H9NXZZ Drainage of Left Foot Skin, External Approach (ICD-10-PCS; principal; 2017-01-24)
PROC: 0JDR3ZZ Extraction of Left Foot Subcutaneous Tissue and Fascia, Percutaneous Approach (ICD-10-PCS; 2017-01-25)
PROC: 02HV33Z Insertion of Infusion Device into Superior Vena Cava, Percutaneous Approach (ICD-10-PCS; 2017-01-29)
DX: E11.621 Type 2 diabetes mellitus with foot ulcer (principal); L03.116 Cellulitis of left lower limb; M86.9 Osteomyelitis, unspecified; L02.612 Cutaneous abscess of left foot; E11.69 Type 2 diabetes mellitus with other specified complication; L97.529 Non-pressure chronic ulcer of other part of left foot with unspecified severity; I10 Essential (primary) hypertension; G47.33 Obstructive sleep apnea (adult) (pediatric); F32.9 Major depressive disorder, single episode, unspecified; F17.210 Nicotine dependence, cigarettes, uncomplicated; Z23 Encounter for immunization; Z79.899 Other long term (current) drug therapy; Z79.4 Long term (current) use of insulin; Z80.8 Family history of malignant neoplasm of other organs or systems
CPT/HCPCS: 36415; 36569; 78315; 80048; 80053; 80202; 82948; 83036; 83605; 84550; 85025; 85027; 85610; 87040; 87070; 87077; 87186; 90732; 93923; 96365; 96367; 96375; A9503; J0690; J2270; J2543; J3370; J7030; J7040; J7050

== ENCOUNTER 2019-02-04 15:19 | Inpatient (IN) ==
[2019-02-04 16:51] LABS: BASO# 0.05 X1000 (0.0-0.2); BASO% 0.6 % (0.0-0.8); EOS# 0.21 X1000 (0.0-0.7); EOS% 2.6 % (0.0-10.0); HEMATOCRIT 37.4 % (42.0-52.0); HEMOGLOBIN 13.1 g/dL (14.0-18.0); IMM GRAN# 0.03 X1000 (0.0-0.04); IMM GRAN% 0.4 % (0.0-0.5); LYMPH% 28.4 % (20.5-51.1); MCH 29.6 PG (27-31); MCV 84.6 FL (81-99); MONO# 0.73 X1000 (0.11-0.59); NEUT# 4.79 X1000 (1.4-6.5); PLT 194 X1000 (130-400); RBC 4.42 XMIL (4.7-6.1); RDW 13.2 % (11.5-14.5); WBC 8.11 X1000 (4.8-10.8)
[2019-02-04 17:04] LABS: ACETONE SERUM NEGATIVE (NEGATIVE)
[2019-02-04 17:14] LABS: AGAP 11; ALB/GLOB RATIO 1.3; ALKALINE PHOSPHATASE 94 U/L (32-122); BUN 38 mg/dL (8-22); CALCIUM 9.2 mg/dL (8.8-10.2); CHLORIDE 99 mmol/L (98-107); COSMO 290; CREATININE 1.3 mg/dL (0.7-1.2); ESTIMATED GFR 58; GLUCOSE 336 mg/dL (70-104); GOT 20 U/L (10-34); GPT 22 U/L (10-44); POTASSIUM 4.6 mmol/L (3.5-5.1); SODIUM 134 mmol/L (136-145); TCO2 24 mmol/L (25-35); TOTAL BILIRUBIN 0.37 mg/dL (0.20-1.00); TOTAL PROTEIN 7.2 g/dL (6.3-8.3)
--- NOTE | 2019-02-04 17:44 | Diag Imaging Result Doc PS360 ---
FOOT COMPLETE RIGHT - 02/04/2019 INDICATION: foot ulcer TECHNIQUE: Three views COMPARISON: None FINDINGS: There is soft tissue irregularity at the medial distal great toe suggesting ulceration. No soft tissue gas or foreign body. There are bulky degenerative heel spurs. There are degenerative changes throughout the mid tarsal joints and at the metatarsophalangeal joints. No fractures or bony erosions. IMPRESSION: 1. Soft tissue ulceration of the great toe but no evidence of osteomyelitis. 2. Degenerative changes throughout the foot. Electronically signed by Tobin Morgan 02/04/2019 5:42 PM
--- NOTE | 2019-02-04 17:47 | Diag Imaging Result Doc PS360 ---
FOOT COMPLETE LEFT - 02/04/2019 INDICATION: foot ulcer TECHNIQUE: Three views COMPARISON: 01/24/2017 FINDINGS: There are bulky degenerative heel spurs. Stable degenerative changes throughout the mid tarsal joints and the metatarsophalangeal joint. No fractures or bony erosions. There is possible soft tissue gas at the lateral surface of the fifth toe. Correlate clinically. IMPRESSION: Possible soft tissue gas at the lateral surface of the fifth toe. No fractures or osteomyelitis. Electronically signed by Tobin Morgan 02/04/2019 5:45 PM
[2019-02-04 18:13] LABS: URINE SOURCE CLEAN CATCH
[2019-02-04 18:20] LABS: BILIRUBIN URINE NEGATIVE (NEGATIVE); BLOOD URINE NEGATIVE (NEGATIVE); COLOR YELLOW; GLUCOSE URINE >1000 mg/dL (NEGATIVE); KETONE URINE NEGATIVE (NEGATIVE); LEUKOCYTES URINE NEGATIVE (NEGATIVE); NITRITE URINE NEGATIVE (NEGATIVE); PROTEIN URINE TRACE mg/dL (NEGATIVE); SP GRAVITY URINE 1.014; TURBIDITY URINE CLEAR (CLEAR); UR EPITHELIAL CELLS <10 /HPF (<10); URINE BACTERIA NEGATIVE /HPF; URINE RBC <10 /HPF (<10); URINE WBC <10 /HPF (<10); UROBILINOGEN URINE NORMAL (NORMAL)
[2019-02-04] MEDS ORDERED: VANCOMYCIN 1 GM/NS 1 GM/250 ML IVPB IV ONE (18:36)
--- NOTE | 2019-02-04 18:40 | PROVIDER DOCUMENTATION ---
This chart was entered by Candida Draper Scribe, acting as scribe for Shaheen Lee CRNP. HPI-Rash/Wound/ReCheck - General Chief Complaint: Extremity Pain Stated Complaint: DIABETIC,FOOT COMPLAINT Time Seen by Provider: 02/04/19 16:06 Source: patient, family (daughter) Allergies/Adverse Reactions: Allergies Allergy/AdvReac Type Severity Reaction Status Date / Time No Known Allergies Allergy Verified 02/04/19 16:37 Home Medications: Home Medication List Medication Instructions Recorded Confirmed Last Taken Type NK [No Home Medications] 02/04/19 02/04/19 Unknown History - History of Present Illness-Dermatology Nature of Presenting Problem: 54 yowm presents to the ed with c/o diabetic wounds to medial bilateral great toes and laceration non healing to left lateral bottom of foot. pt sts he is a NIDM but has ran out of medication and does not have a pcp. 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 with washing, betadine and honey daily but wounds will not improve Location: reports: feet Quality: reports: painful Severity: reports: moderate Onset/Duration: reports: gradual Timing: reports: still present, constant Context/Associated Symptoms: reports: laceration (lateral bottom left foot), tender area, other (ulcerations to bilateral great toes) Identifiable cause?: Yes (diabetic wound) Locality of Occurance: Home Similar Symptoms Previously?: Yes Recently seen or treated by another doctor?: No Review of Systems - Adult - REVIEW OF SYSTEMS - ADULT Constitutional: denies: chills, fever Eyes: reports: no symptoms reported Ears, Nose, Mouth & Throat: reports: no symptoms reported Cardiovascular: denies: chest pain, palpitations Respiratory: denies: cough, shortness of breath, wheezing Gastrointestinal: denies: abdominal pain, diarrhea, nausea, vomiting Genitourinary: reports: no symptoms reported Musculoskeletal: reports: see HPI, other (bilateral great toes). denies: back pain, neck pain Integumentary: reports: see HPI, skin sores/ulcer Neurological: denies: dizziness/vertigo, headache/migraines Psychiatric: reports: no symptoms reported Endocrine: reports: no symptoms reported Hematologic/Lymphatic: reports: no symptoms reported Allergic/Immunologic: reports: no symptoms reported All Other Systems: Reviewed and Negative Past History - Adult - PAST MEDICAL HISTORY-ADULT Review of Records: reports: Old Records Reviewed, Nursing Assessment Review, Medications Reviewed, Social history reviewed & non-contributory. Major Childhood Illnesses: reports: denies history Cardiovascular: reports: HTN Respiratory: reports: denies history Gastrointestinal: reports: denies history Obstetrical/Gynecological: reports: denies history Genitourinary: reports: denies history Musculoskeletal: reports: denies history Hand Dominance: Right Handed Neurological: reports: denies history Psychiatric: reports: other (drug abuse) Endocrine/Immune: reports: denies history Other Conditions: reports: denies history - PRIOR SURGERIES/PROCEDURES Surgical/Procedure History: reports: tonsillectomy, back/neck - IMMUNIZATION STATUS Childhood Immunizations: See Nurse Assessment Flu Vaccine: See Nurse Assessment - FAMILY HISTORY Family History: reviewed, not pertinent - SOCIAL HISTORY Smoking: cigarettes, greater than 1 pack/day Provider spent 3-5 mins advising pt. on dangers of tobacco.: Discussed manners to quit use, and f/u contacts for add'l counseling. Substance Use: alcohol Alcohol Use Frequency: 2-3 times a month Number of drinks per typical drinking period:: 3-4 drinks Living Situation: family Physical Exam-General - PHYSICAL EXAM-ADULT Initial Vital Signs Reviewed: Yes - CONSTITUTIONAL General Appearance: appears well, alert, no apparent distress - EYES Eyes: PERRL/EOMI, pink conjunctivae - HEAD, EARS, NOSE, MOUTH & THROAT HENMT: moist mucous membranes, dental decay - NECK Neck: non-tender, full range of motion, supple, normal inspection - RESPIRATORY Respiratory: chest non-tender, lungs clear, normal breath sounds - CARDIOVASCULAR Cardiovascular: normal peripheral pulses, regular rate, rhythm - GASTROINTESTINAL (ABDOMEN) Abdominal Exam: normal bowel sounds, non tender, soft - LYMPHATIC Lymphatic: no adenopathy - MUSCULOSKELETAL Back Exam: normal inspection, no CVA tenderness, no vertebral tenderness Extremity: normal range of motion, no calf tenderness, normal capillary refill, pelvis stable, tenderness (bilateral great toes with diabetic ulcerations and non healing laceration to bottom of left lateral foot) - SKIN Integumentary: normal color, normal turgor, warm/dry, laceration(s) (bottom lateral left foot), tenderness (left grat toe), other (diabetic ulcerations to medial bilateral great toes) - NEUROLOGIC Neurologic: grossly normal, no motor/sensory deficits - PSYCHIATRIC Psych/Mental Status: normal mood/affect, normal thought content, normal thought process, oriented x 3 Progress - PLAN OF CARE/RESULTS Progress/Plan/Lab Results: Vital Signs - 8 hr 02/04/19 15:23 Temperature 98.4 F Pulse Rate 93 H Respiratory Rate 17 Blood Pressure 175/70 O2 Sat by Pulse Oximetry 98 Laboratory Results - last 24 hr 02/04/19 02/04/19 02/04/19 16:35 16:35 17:04 WBC 8.11 RBC 4.42 L Hgb 13.1 L Hct 37.4 L MCV 84.6 MCH 29.6 MCHC 35.0 RDW Std Deviation 13.2 Plt Count 194 MPV 11.0 H Immature Gran % (Auto) 0.4 Neut % (Auto) 59.0 Lymph % (Auto) 28.4 [place] % (Auto) 9.0 Eos % (Auto) 2.6 Baso % (Auto) 0.6 Immature Gran # (Auto) 0.03 Neut # (Auto) 4.79 Lymph # (Auto) 2.30 [place] # (Auto) 0.73 H Eos # (Auto) 0.21 Baso # (Auto) 0.05 Sodium 134 L Potassium 4.6 Chloride 99 Carbon Dioxide 24 L Anion Gap 11 BUN 38 H Creatinine 1.3 H Estimated GFR/1.73 m2 58 BUN/Creatinine Ratio 29 Glucose 336 H Calculated Osmolality 290 Calcium 9.2 Total Bilirubin 0.37 AST 20 ALT 22 Alkaline Phosphatase 94 Total Protein 7.2 Albumin 4.0 Globulin 3.2 Albumin/Globulin Ratio 1.3 Urine Source CLEAN CATCH Urine Color YELLOW Urine Turbidity CLEAR Urine pH 5.0 Ur Specific [place] 1.014 Urine Protein TRACE A Ur Glucose (Stick) >1000 A Ur Ketones (Stick) NEGATIVE Urine Blood NEGATIVE Urine Nitrite NEGATIVE Urine Bilirubin NEGATIVE Urobilinogen Dipstick NORMAL Urine Leukocytes NEGATIVE Urine WBC (Auto) <10 Urine RBC (Auto) <10 U Epithel Cells (Auto) <10 Urine Bacteria (Auto) NEGATIVE Acetone Level NEGATIVE Orders Category Date Time Status FOOT COMPLETE LEFT [RAD] Stat Exams 02/04/19 16:35 Completed FOOT COMPLETE RIGHT [RAD] Stat Exams 02/04/19 16:35 Completed CBC WITH DIFF [HEME] Stat Lab 02/04/19 16:35 Completed COMPREHENSIVE METABOLIC PANEL [CHEM] Stat Lab 02/04/19 16:35 Completed Ketone [ACETONE SERUM] [CHEM] Stat Lab 02/04/19 16:35 Completed URINALYSIS W/POSS RFLX CULT [URINALYSIS] Stat Lab 02/04/19 17:04 Completed Vancomycin 1 gm/Ns Med 02/04/19 18:36 Active 1 gm in 250 ml IV NOW Result Diagrams: 02/04/19 16:35 02/04/19 16:35 - CONSULTS/PCP/HOSPITALIST Notification #1 *Consult/PCP/Hospitalist*: Dr. San Time Discussed: 18:38 Reason/Comments: advised pt will be admitted by Dr. Esquivel Consult Disposition: Admit Departure - Departure Date of Disposition Decision: 02/04/19 Time of Disposition Decision: 18:39 DIAGNOSIS: Tobacco use disorder Diabetic foot ulcer Qualifiers: Diabetic foot ulcer location: toe Diabetes mellitus type: type 2 Laterality: unspecified laterality Non-pressure ulcer stage: unspecified non-pressure ulcer stage Qualified Code(s): E11.621 - Type 2 diabetes mellitus with foot ulcer; L97.509 - Non-pressure chronic ulcer of other part of unspecified foot with unspecified severity Uncontrolled diabetes mellitus Qualifiers: Diabetes mellitus type: type 2 Glycemic state: with hyperglycemia Qualified C ode(s): E11.65 - Type 2 diabetes mellitus with hyperglycemia Disposition: ADMITTED INPATIENT 09 Certified Medical Emergency: Emergent Condition: Stable Referrals and Follow-Ups: None,PCP [Primary Care Provider] - - Critical Care Note This patient required my direct & personal management of CC.: No Attestation - Physician/ DANG Attestation Patient care was provided by Advanced Practice Provider:: Yes Advanced Practice Provider documentation review:: The Mid-level provider documentation, treatment plan and medical decision making was reviewed by the physician who agrees with all treatment and medical decision making by the MLP. The physician spent face to face time with patient:: No Advanced Practice Provider documentation review:: Supervising physician onsite and consulted in the evaluation and care of this patient. The physician did not have a face to face encounter with the patient. This chart was documented by the indicated scribe, (Candida Draper Scribe) and accurately reflects the services I performed and decisions made by me, Shaheen Lee CRNP, as attested by the provider's signature.
[2019-02-04] MEDS ORDERED: ZOSYN 3.375 GM in NS 50 ML IV ONE (19:34)
[2019-02-04] MEDS ORDERED: HUMULIN 70/30 SUBQ ONE (20:34)
--- NOTE | 2019-02-04 21:54 | HISTORY AND PHYSICAL ---
PRIMARY CARE PHYSICIAN: None. REASON FOR ADMISSION: Two-day history of abscess formation on left hallux. HISTORY OF PRESENT ILLNESS: Mr. Magdy Muñiz is a 54-year-old male with a past medical history of poorly controlled type 2 diabetes, sleep apnea, and hypertension. He was last seen here on 01/23/2017 for a diabetic foot ulcer. The patient reports that he only takes metformin sporadically for his diabetic control. He admits to having polyuria and polydipsia and some polyphagia. He is not sure if he has lost any weight; however, today he comes in complaining of a small area of fluctuance on the dorsomedial aspect of his left hallux. He said he called the wound center today, and they told him to come to the ER and be evaluated. He denies any fever or chills. Has not had any recognizable trauma to his foot. He denies any GI or complaints. Otherwise, 12-system review was negative. Positive findings noted as above. The patient denies any pain emanating from that foot or any other part of his foot. PAST SURGICAL HISTORY: He has had back surgery and UVP-plasty. He has had tonsillectomy. FAMILY HISTORY: Notable for heart disease and pancreatic cancer. No diabetes in first-degree relatives. ALLERGIES: No known allergies. MEDICATIONS: None. SOCIAL HISTORY: He still smokes 1 pack a day. Uses marijuana twice a month and INJECTS IV DRUGS TWICE A MONTH. He is and lives with his . LAB WORK: White count is 8000, hemoglobin and hematocrit 15 and 37, platelets 194, normal differential. Sodium is 134. BUN is 30, creatinine 1.3, glucose 336. Acetone is negative. Urinalysis shows greater than 1000 glucose, trace protein. Foot x-ray: Soft tissue ulceration but no evidence of osteomyelitis, and diffuse DJD in the entire foot. Possible soft tissue gas in the lateral aspect of the foot on the 5th toe. No evidence of fractures. PHYSICAL EXAMINATION: GENERAL: Middle-aged, overweight man. He is alert and oriented to person and time, with normal mood and affect. VITAL SIGNS: Blood pressure 175/70, heart rate 93, respirations 17, temperature 98.4, 98% on room air. HEENT: Head is normocephalic, atraumatic. Eyes PERRL, EOMI. He is anicteric, not pale. ENT: Oropharynx exam is grossly normal. NECK: Supple. No JVD, carotid bruits, thyromegaly. CHEST: Good air entry in both sarmiento. CARDIOVASCULAR: First and second heart sounds heard. No gallops, murmurs or rubs. Rhythm is regular. ABDOMEN: Protuberant and soft without tenderness or megaly. Bowel sounds are normal. RECTAL: Deferred. EXTREMITIES: The patient has a chronic healing ulceration of the medial aspect of the right hallux, extending to the plantar surface. No exudation noted. No erythema. On the left foot the patient has a linear chronic ulcer on the plantar surface at the base of the 5th MTP joint area. It measures about 2 cm. No exudation or erythema noted. No swelling. The patient also has a callus on the plantar surface near the medial aspect of the left hallux. It is around, I would say, the PIP joint area. The patient also has a 1 cm fluctuant area with no surrounding erythema and no exudation on the dorsomedial area of the left hallux just adjacent to the nail bed of the hallux. It is not tender to touch. Not warm. The patient has 1+ pulses distally in all extremities. Regular rhythm. No clubbing or peripheral cyanosis. No edema. NEUROLOGIC: No gross focal deficits. SKIN: Intact. No gross lesions other than those noted as above. MUSCULOSKELETAL: Grossly normal. ASSESSMENT: 1. Diabetic foot infection of the left foot. Possible early abscess formation. 2. Uncontrolled type 2 diabetes 3. Hypertension. 4. History of sleep apnea. 5. Anemia of chronic inflammation. 6. Tinea pedis. PLAN: The patient will be started on empiric antibiotics, broad-spectrum antibiotics. General Surgery will need to be consulted to drain the area that is fluctuant which appears to be an abscess. Consult the same. The patient is a poorly controlled diabetic, noncompliant with medication. I have told him in his best interest he will need to go on metformin twice a day, scheduled, with insulin definitely, 70/30. I told the patient since he has no insurance, that [facility] insulin at [facility] might be a cost-effective approach. Have started him on 70/30, and this will be adjusted during his stay. Will consult the dietitian to see him. The patient's blood pressure should be hopefully managed with ARB or ZARINA inhibitor due to the fact he has trace proteinuria. In the interim will hydrate the patient due to polyuria and polydipsia, and see what his BUN and creatinine are tomorrow. His A1c will need to be followed. cc: Jaxon Esquivel MD
[2019-02-04] MEDS ORDERED: VANCOMYCIN IV PER PHARMACY MISC SCH (22:16)
[2019-02-04] MEDS ORDERED: ZOFRAN IV PRN (22:16)
[2019-02-04] MEDS ORDERED: TYLENOL PO PRN (22:16)
[2019-02-04] MEDS: OXY IR PO PRN (23:38)
[2019-02-04] MEDS: NS 1,000 ML IV SCH (23:38)
[2019-02-04] MEDS: LOVENOX SUBQ SCH (23:38)
[2019-02-05] MEDS ORDERED: INSULIN PEN NEEDLES ONE (00:04)
[2019-02-05] MEDS: HUMULIN 70/30 SUBQ SCH ×3 (00:04→21:51)
[2019-02-05] MEDS: NIZORAL 2% CREAM TOP SCH ×3 (00:07→20:24)
[2019-02-05] MEDS: NICODERM PATCH TD SCH ×4 (00:08→08:42)
[2019-02-05] MEDS ORDERED: VANCOMYCIN 1,750 MG in NS 250 ML IV ONE (01:00)
[2019-02-05] MEDS: ZOSYN 3.375 GM in NS 50 ML IV SCH ×4 (01:43→20:21)
[2019-02-05] MEDS ORDERED: PNEUMOVAX 23 IM ONE (03:45)
[2019-02-05 06:36] LABS: BASO# 0.04 X1000 (0.0-0.2); BASO% 0.5 % (0.0-0.8); EOS# 0.25 X1000 (0.0-0.7); EOS% 3.3 % (0.0-10.0); HEMATOCRIT 37.1 % (42.0-52.0); HEMOGLOBIN 12.8 g/dL (14.0-18.0); IMM GRAN# 0.02 X1000 (0.0-0.04); IMM GRAN% 0.3 % (0.0-0.5); LYMPH# 3.12 X1000 (1.2-3.4); LYMPH% 40.9 % (20.5-51.1); MCH 29.7 PG (27-31); MCHC 34.5 g/dL (33-37); MCV 86.1 FL (81-99); MONO# 0.69 X1000 (0.11-0.59); MPV 11.5 FL (7.4-10.4); NEUT# 3.51 X1000 (1.4-6.5); PLT 176 X1000 (130-400); RBC 4.31 XMIL (4.7-6.1); RDW 13.4 % (11.5-14.5); WBC 7.63 X1000 (4.8-10.8)
[2019-02-05 06:46] LABS: HEMOGLOBIN A1C 10.6 % (4.8-6.0)
[2019-02-05 07:03] LABS: AGAP 11; ALB/GLOB RATIO 1.2; ALBUMIN 3.7 g/dL (3.5-5.0); ALKALINE PHOSPHATASE 80 U/L (32-122); BUN 29 mg/dL (8-22); CALCIUM 9.2 mg/dL (8.8-10.2); CHLORIDE 105 mmol/L (98-107); COSMO 289; CREATININE 1.2 mg/dL (0.7-1.2); ESTIMATED GFR > 60; GLUCOSE 194 mg/dL (70-104); GOT 20 U/L (10-34); GPT 21 U/L (10-44); MAGNESIUM 1.8 mg/dL (1.5-2.7); POTASSIUM 3.8 mmol/L (3.5-5.1); SODIUM 139 mmol/L (136-145); TCO2 23 mmol/L (25-35); TOTAL BILIRUBIN 0.48 mg/dL (0.20-1.00); TOTAL PROTEIN 6.7 g/dL (6.3-8.3)
[2019-02-05] MEDS: OXY IR PO PRN ×7 (08:18→23:21)
[2019-02-05] MEDS ORDERED: NORCO-5 PO SCH (09:00)
[2019-02-05] MEDS: NS 1,000 ML IV SCH (11:52)
--- NOTE | 2019-02-05 13:05 | OPERATIVE NOTE ---
PROCEDURE DATE: 02/05/2019 PREOPERATIVE DIAGNOSIS: Left foot abscess. POSTOPERATIVE DIAGNOSIS: Left foot abscess. PROCEDURE: Incision and drainage of left foot abscess. SURGEON: Dr. Dontae Amaya. DUDE WRANGLER: None. ANESTHESIA: None. FINDINGS: Thickened, purulent noted, almost like a sebaceous cyst-like consistency. BRIEF HISTORY: A 54-year-old gentleman who I had seen today for the area of abscess. It is felt that he would benefit from a drainage. The risks, benefits, and alternatives were discussed. All questions answered. DESCRIPTION OF PROCEDURE IN DETAIL: After informed consent was obtained, the patient remained in his bed. We used alcohol to prep the area. With an 18-gauge needle, I was able to open and unroof the area. Using pressure, I was able to express some thicker purulence. There was not a lot, but we were able to express some. The area decreased in fluctuance. The patient tolerated the procedure well. cc: Dontae Amaya MD
--- NOTE | 2019-02-05 13:49 | GENERAL SURGERY CONSULTATION ---
DATE: 02/05/2019 REQUESTING PHYSICIAN: Hospitalist. REASON FOR CONSULTATION: Consult concerning abscess on the left hallux. HISTORY OF PRESENT ILLNESS: This is a 54-year-old gentleman with a past medical history of poorly- controlled diabetes, sleep apnea and hypertension, presented with a diabetic foot ulcer. He has only been taking his metformin sporadically. He had some imaging that suggested the potential for an abscess, but no osteomyelitis. I was asked to weigh an opinion. He has poor sensation down there and does not feel much, but there is an area of fluctuance. PAST MEDICAL HISTORY: Type 2 diabetes, sleep apnea, hypertension. PAST SURGICAL HISTORY: Includes back surgery, tonsillectomy, UVP-plasty. FAMILY HISTORY: Positive for heart disease and pancreatic cancer. ALLERGIES: None. HOME MEDICATIONS: Reviewed. MAR reviewed. SOCIAL HISTORY: Current smoker. Does use IV drugs and has reported marijuana use. REVIEW OF SYSTEMS: A full 10-point review of systems obtained. Negative unless as otherwise specified in HPI. PHYSICAL EXAMINATION: Vital Signs: Patient is currently afebrile. His vital signs stable. General exam: No acute distress. Alert, interactive, male, looks stated age. HEENT: Normocephalic, atraumatic. Pupils equal, round, reactive to light. Mucous membranes moist. Oropharynx benign. Neck: Supple. Trachea midline. Cardiovascular: Regular rate and rhythm. Lungs: Grossly clear. Abdomen: Soft, nontender, nondistended. Extremities: Moves all extremities. There appears to be an area of fluctuance on the medial aspect of his left foot with associated callus. He does have another area of callus on his right foot of the first toe. Neurologic: Some decreased sensation on the lower extremities. Skin: Wound as noted above. LABORATORY: Reviewed. White blood cell count is normal this morning. ASSESSMENT AND PLAN: A 54 year old with left diabetic foot infection. 1. Left diabetic foot infection. At this time, we will plan on drainage at the bedside. Discussed it with the patient. We will proceed with a very small area. There is a lot of erythema, probably not enough fluid to get cultures from, but recommend continuing antibiotics for right now. cc: Dontae Amaya MD
--- NOTE | 2019-02-05 16:03 | PROGRESS NOTE ---
DATE: 02/05/2019 INTERVAL HISTORY: Mr. Muñiz was admitted overnight for left foot great toe suspected abscess. He was resuscitated with intravenous fluids and was started on intravenous antibiotics. In the morning time, he was evaluated by surgeon and he underwent incision and drainage of left foot abscess at which time thick purulence was drained out. The area had decreased fluctuance after that. The patient had tolerated the procedure well. Currently, he denies any chest pain, shortness of breath, abdominal pain, nausea, vomiting. His pain is well controlled in bilateral feet. He states that he has not been taking his metformin because of no real good reason. VITALS: Temperature 98.4 degrees, pulse 69, respiratory rate 18, blood pressure 138/73, saturating 98% on room air. PHYSICAL EXAMINATION: General: He does not appear in any acute distress. Mouth: Oral cavity is moist. Lungs: Air entry bilaterally equal. No wheeze, rhonchi, crackles. Cardiovascular: S1, S2 normal. No murmur, rub, or gallop. He does have missing teeth. Extremities: Bilateral lower extremity great toe dorsal surface has ulcer about 2 x 2 cm. It does not look infected on the right side. Left side does have mild fluctuance and a small abscess formation which was drained recently. LABS: No WBC count elevation, normocytic anemia, normal platelet count. He does have improving BUN and creatinine. He continues to have hyperglycemia and hemoglobin A1c of 10.6. ASSESSMENT AND PLAN: 1. Diabetic foot infection of the left foot with abscess, status post incision and drainage. Continue intravenous vancomycin and Zosyn. As previously patient had history of methicillin- sensitive Staphylococcus aureus left foot infection. Follow up with final blood culture results. Follow up abscess drain results if it was collected. Depending on his condition, I might transition him to oral antibiotics in the next 24 to 48 hours. 2. Type 2 diabetes mellitus, uncontrolled with hyperglycemia. Continue patient on current dose of insulin Humulin 70/30, which is controlling his sugars better. Continue as-needed oxycodone and acetaminophen for pain. 3. Essential hypertension, currently in acceptable range. He does not need any antihypertensive medication. 4. Tobacco abuse. Continue nicotine patch. 5. Anemia of chronic inflammation, aware. No need of acute transfusion. 6. Disposition: Patient remains inside the hospital as we await blood culture results. If the culture results are negative, my plan is to change antibiotics to oral. I anticipate discharge in the next 24 to 48 hours. Plan of care discussed with the patient. All of his questions have been answered. cc: Cayden Wells MD
[2019-02-05] MEDS: VANCOMYCIN 2,200 MG in NS 500 ML IV SCH (21:50)
[2019-02-05] MEDS: LOVENOX SUBQ SCH (21:51)
[2019-02-05] MEDS ORDERED: NS 1,000 ML IV SCH (22:00)
[2019-02-06] MEDS: OXY IR PO PRN ×6 (02:17→21:56)
[2019-02-06] MEDS: ZOSYN 3.375 GM in NS 50 ML IV SCH ×3 (02:19→14:30)
--- NOTE | 2019-02-06 06:46 | GENERAL SURGERY PROGRESS NOTE ---
DATE: 02/06/2019 SUBJECTIVE: Patient seems to be doing well. OBJECTIVE: Vital Signs: Patient is currently afebrile. His vital signs are stable. General: No acute distress. HEENT: Normocephalic, atraumatic. Pupils equal, round, reactive to light. Mucous membranes moist. Oropharynx benign. Neck: Supple. Trachea midline. Cardiovascular: Regular rate and rhythm. Lungs: Grossly clear. Abdomen: Soft, nontender, nondistended. Extremities: Wound to the left foot seems to be improving. I could not get any more purulence out of it. Vascular: All extremities perfused. Skin: Wound as noted above. Neurologic: Grossly intact. LABORATORY: None this morning. ASSESSMENT AND PLAN: A 54-year-old with diabetic foot ulcer. Diabetic foot ulcer. At this time it has been draining, there was a lot to actually get a culture from. He is on appropriate antibiotics. I think overall he can probably be transitioned to oral antibiotics here in the near future and discharged, and I can see him back in the office. cc: Dontae Amaya MD
[2019-02-06] MEDS: NICODERM PATCH TD SCH (08:13)
[2019-02-06] MEDS: HUMULIN 70/30 SUBQ SCH ×2 (08:14→21:58)
[2019-02-06] MEDS: NIZORAL 2% CREAM TOP SCH ×2 (08:14→21:57)
[2019-02-06] MEDS: VANCOMYCIN 2,200 MG in NS 500 ML IV SCH (13:23)
--- NOTE | 2019-02-06 14:31 | PROGRESS NOTE ---
DATE: 02/06/2019 INCOMPLETE REPORT - DICTATION STARTS HERE. INTERVAL HISTORY: No events overnight. SUBJECTIVE: Patient is feeling the same. INCOMPLETE REPORT - DICTATION ENDS HERE. cc: Cayden Wells MD
--- NOTE | 2019-02-06 14:33 | PROGRESS NOTE ---
DATE: 02/06/2019 INTERVAL HISTORY: No acute events. The patient underwent incision and drainage yesterday. He does not appear in any acute distress. His diabetes is better controlled. I discussed with him about changing his antibiotics to p.o. and follow up with culture results, and I answered all of his questions. Currently the patient denies chest pain, shortness of breath, any undue pain of the lower extremity. His diabetes is better controlled. We discussed about following up with outpatient doctor for better control of diabetes. PHYSICAL EXAMINATION: Vital Signs: Temperature 98.3 degrees, pulse 72, respiratory rate 20, blood pressure 130/75, saturating 100% on room air. General: Does not appear in any acute distress. Oral cavity is moist. Lungs: Air entry bilaterally equal. No wheeze, rhonchi or crackles. Heart: S1 and S2 normal. No murmur, rub or gallop. Abdomen: Soft and nontender. Extremities: Bilateral lower extremity he does have an old looking ulcer with a dry scab over the right great toe. On the left side he has mild fluctuance and a small abscess formation around callus which is draining spontaneously. LABS: No new labs today except blood sugars is showing hyperglycemia. ASSESSMENT AND PLAN: 1. Diabetic foot infection of the left foot with abscess status post drainage by surgical team. His blood culture in lab and has not shown any growth so much that my suspicion for sepsis is less. I am going to change his antibiotics to per oral doxycycline to make sure he tolerates it better, and tomorrow if the blood culture remains negative my plan is to discharge him on doxycycline for about a 7-day course. I will appreciate surgery recommendation. 2. Type 2 diabetes mellitus with uncontrolled hyperglycemia. Continue current dose of Humulin 70/30, which is controlling his sugars. Continue as needed oxycodone and acetaminophen for pain. 3. Nicotine. Nicotine patch for tobacco abuse. 4. Anemia of chronic inflammation in acceptable range. 5. Disposition. Once the blood cultures turn negative tomorrow, my plan is to discharge him home. Plan of care discussed with the patient. All of his questions have been answered. cc: Cayden Wells MD
[2019-02-06] MEDS: GLUCOPHAGE PO SCH (17:00)
[2019-02-06] MEDS: LOVENOX SUBQ SCH (21:57)
[2019-02-06] MEDS: DOXYCYCLINE PO SCH (22:23)
[2019-02-07] MEDS: OXY IR PO PRN ×5 (01:07→15:04)
[2019-02-07 07:07] LABS: AGAP 12; BUN 16 mg/dL (8-22); CALCIUM 8.9 mg/dL (8.8-10.2); CHLORIDE 103 mmol/L (98-107); COSMO 286; CREATININE 1.2 mg/dL (0.7-1.2); ESTIMATED GFR > 60; GLUCOSE 224 mg/dL (70-104); POTASSIUM 4.6 mmol/L (3.5-5.1); SODIUM 139 mmol/L (136-145); TCO2 24 mmol/L (25-35)
[2019-02-07] MEDS: GLUCOPHAGE PO SCH ×2 (08:10→17:08)
[2019-02-07] MEDS: NICODERM PATCH TD SCH (08:10)
[2019-02-07] MEDS: DOXYCYCLINE PO SCH (08:11)
[2019-02-07] MEDS ORDERED: HUMULIN 70/30 SUBQ SCH ×2 (09:00)
[2019-02-07] MEDS: NIZORAL 2% CREAM TOP SCH (10:00)
[2019-02-07 14:16] VITALS: BP 142/75
--- NOTE | 2019-02-07 17:27 | GENERAL SURGERY PROGRESS NOTE ---
DATE: 02/07/2019 Mr. Glass is up and about. Identified the area on his toe where the fluid was drained. It looks normal. There is no evidence of recurrent fluid. He is afebrile. Hemodynamics were good. Cultures are negative thus far. It is certainly okay with me that he go home on p.o. antibiotics and follow up with Dr. Amaya. cc: Isai Case MD
--- NOTE | 2019-02-08 01:02 | DISCHARGE SUMMARY ---
ADMISSION DATE: 02/04/2019 DISCHARGE DATE: 02/07/2019 DATE OF DISCHARGE: 02/07/2019 DISCHARGE DIAGNOSES: 1. Diabetic foot infection of left foot with abscess. 2. Type 2 diabetes mellitus with uncontrolled hyperglycemia. 3. Nicotine and tobacco abuse. 4. Anemia of chronic inflammation. 5. History of essential hypertension. 6. History of sleep apnea. 7. Tinea pedis. CONSULTATIONS DURING HOSPITALIZATION: General Surgery Dr. Amaya. PROCEDURE DURING HOSPITALIZATION: Incision and drainage of left foot great toe abscess on 02/05/2019. DISCHARGE MEDICATIONS: Doxycycline 100 mg p.o. b.i.d. 14 tablets have been prescribed, metformin 500 mg b.i.d. with meals 120 tablets prescribed, insulin Humulin 70/30, 25 units in the morning and 12 units at nighttime, nicotine patch 40 mg per 24 hours 14 patches have been prescribed. PHYSICAL EXAMINATION: Vital Signs: At the time of discharge temperature 97.5 degrees, pulse 66, respiratory rate 18, blood pressure 142/75, saturating 98% on room air. General: The patient does not appear in any acute distress. HEENT: No pallor, cyanosis, clubbing or icterus. Oral cavity is moist. Lungs: Air entry bilaterally equal. No wheeze, rhonchi, or crackles. Cardiovascular: S1, S2 normal. No murmur, rub, or gallop. Abdomen: Soft, nontender. Lower Extremities: Right lower extremity has an old ulcer with a dry scab over the dorsal aspect off right great toe. On the left lower extremity he has a small residual abscess which is spontaneously draining on pressure on dorsal aspect of the great toe overlying the callus. SIGNIFICANT LABORATORIES DURING HOSPITAL ADMISSION: His WBC count was 7.6, hemoglobin of 12.8, platelet count of 176,000. His electrolytes were largely within acceptable range. He did have acute kidney injury on presentation with creatinine of 1.3 and BUN of 38, which had resolved at the time of discharge. His hemoglobin A1c was 10.6. Microbiology: Blood culture did not show any growth. HOSPITAL COURSE SUMMARY: Mr. Muñiz is a 54 years old man with a past history of poorly- controlled diabetes and essential hypertension who comes in with complaints of small area of fluctuance in the dorsomedial aspect of left great toe. [facility] and he was told to come to the emergency room for further evaluation. He did not have any fevers, chills, or he could not remember any recognizable trauma. On arrival he was noted to have about a 3 x 3 cm abscess on the dorsal aspect of the left great toe. Surgery was consulted who performed a small incision and debridement. The abscess was left open and it was spontaneously draining. The patient was initially started on intravenous antibiotic with vancomycin and Zosyn, which was later on changed to oral doxycycline. Blood cultures does not have any growth to date. At the time of discharge the patient's abscess was reduced to minimum. It had some sanguinous drainage; however, it was healing well. The patient was ambulatory without any trouble. He was extensively counseled about better diabetes control and was discharged on insulin and metformin with doxycycline prescription. He was advised to follow up with surgeon as an outpatient. TIME SPENT: More than 30 minutes was spent in discharging this patient. All of his questions have been answered. cc: Cayden Wells MD
== END 2019-02-07 17:15 | disposition home or self-care (01) | DRG 638 ==
LOC: ED 15:19 → 4N 15:20 → SUATTDRO 15:20
PROVIDERS: ATTEND Internal Medicine
CPT/HCPCS: 51702; 73630; 80048; 80053; 81001; 82009; 82948; 83036; 83735; 85025; 87040; 90732; 96365; 96368; 99285; A9270; J1650; J2543; J3370; J7030; J7040; J7050; XXXXX